=== PATIENT | male | born 1955 | race Caucasian/White ===

== ENCOUNTER 2020-02-11 19:30 | Inpatient (IN) ==
[2020-02-11] MEDS ORDERED: *HR* Dextrose 50 % in Water (Syg) 50 ML SYRINGE ONE ×3 (19:54→22:29)
[2020-02-11] MEDS ORDERED: *HR* Dextrose 50 % in Water (Syg) 50 ML SYRINGE IVP ONE ×2 (19:57→20:36)
[2020-02-11 20:05] LABS: Basophils % 0.3 %; Hemoglobin 9.8 g/dL (12.9-16.9); Segmented Neutrophils % 39.6 %
[2020-02-11 20:07] LABS: Eosinophils # 0.1 K/mcL (0.0-0.6); Eosinophils % 1.6 %; Hematocrit 33.5 % (37.5-50.1); Immature Granulocytes % 0.3 % (0-4); Immature Platelets 4.4 % (1.1-6.1); Lymphocytes # 1.6 K/mcL (0.6-4.6); Mean Corpuscular HGB Conc 29.3 g/dL (31.6-35.5); Mean Corpuscular Hemoglobin 25.5 pg (28.0-33.3); Mean Platelet Volume 9.8 fL (9.4-12.4); Monocytes # 0.3 K/mcL (0.0-1.3); Monocytes % 8.2 %; Neutrophils # 1.3 K/mcL (1.6-8.9); Red Blood Count 3.85 M/mcL (4.19-5.50); Red Cell Distribution Width 17.7 % (11.5-14.5); White Blood Count 3.2 K/mcL (4.3-11.1)
[2020-02-11 20:13] LABS: Prothrombin Time 11.5 Seconds (9.4-12.1)
[2020-02-11 20:14] LABS: Estimated Average Glucose 246 mg/dl
[2020-02-11 20:27] LABS: Platelet Count 62 K/mcL (140-400)
[2020-02-11 20:28] LABS: Platelet Estimate Decreased (Normal)
[2020-02-11 20:30] LABS: VBG HCO3 22 mEq/L (21-27); VBG PCO2 50 mmHg (41-51); VBG PH 7.25 pH Units (7.32-7.42); VBG PO2 69 mmHg (25-50)
[2020-02-11 20:31] LABS: Hypochromasia Present (Not Present); Microcytosis Present (Not Present)
[2020-02-11 20:32] LABS: Alanine Aminotransferase 35 Units/L (7-52); Albumin 3.6 g/dL (3.5-5.7); Albumin/Globulin Ratio 1.1 (1.1-2.2); Alkaline Phosphatase 201 Units/L (34-104); Aspartate Amino Transferase 30 Units/L (13-39); BUN/Creatinine Ratio 29 (6-26); Bilirubin,Direct 0.1 mg/dL (0.0-0.2); Bilirubin,Indirect 0.4 mg/dL (0.0-1.0); Bilirubin,Total 0.5 mg/dL (0.3-1.0); Blood Urea Nitrogen 47 mg/dL (8-23); Calcium 11.6 mg/dL (8.6-10.3); Carbon Dioxide 18 mEq/L (23-29); Chloride 108 mEq/L (98-107); Globulin 3.3 g/dL (2.4-3.5); Glucose 65 mg/dL (70-105); Magnesium 1.6 mg/dL (1.6-2.6); Osmolality,Calculated 294 (280-300); Phosphorous 3.4 mg/dL (2.7-4.5); Potassium 5.9 mEq/L (3.5-5.1); Sodium 137 mEq/L (136-145); Total Protein 6.9 g/dL (6.4-8.9); eGFR For African Americans 53 (> 60); eGFR For Non-African Americans 44 (> 60)
[2020-02-11 20:33] LABS: Troponin I < 0.03 ng/mL (< 0.04)
[2020-02-11] MEDS ORDERED: Calcium Gluconate 1gm/50mL 1 GM/50 ML BAG IVPB ONE (20:36)
[2020-02-11] MEDS ORDERED: Insulin Human Regular 5 UNIT in 0.9 % Sodium Chloride 10 ML IV ONE (20:37)
[2020-02-11] MEDS ORDERED: Ipratropium/Albuterol Neb 3 ML IH ONE (20:37)
[2020-02-11 20:38] LABS: C-Reactive Protein 29 mg/L (Less than 10)
[2020-02-11 21:14] LABS: Bacteria,Urine None Seen per hpf (None-Few); Bilirubin,Urine Negative (Negative); Blood,Urine Negative (Negative); Clarity,Urine Clear (Clear); Color,Urine Yellow (Yellow); Glucose,Urine (UA) Normal (Normal); Hyaline Casts,Urine None Seen per lpf (None-Few); Ketones,Urine Negative (Negative); Leukocyte Esterase,Urine Trace (Negative); Nitrite,Urine Negative (Negative); PH,Urine 5.5 pH Units (5.0-8.0); Protein,Urine Negative (Neg-Trace); RBC,Urine 0-3 per hpf (0-3); Specific Gravity,Urine 1.017 (1.010-1.025); Squamous Epithelial Cell,Urine Few per lpf (None-Few); Urobilinogen,Urine Normal (Normal); WBC,Urine 0-3 per hpf (0-3)
[2020-02-11] MEDS: 0.9 % Sodium Chloride 1,000 ML IVC SCH (21:26)
[2020-02-11] MEDS ORDERED: Piperacillin/Tazobactam 3.375 GM in 0.9 % Sodium Chloride Mini Bag 100 ML IVPB ONE (21:33)
[2020-02-11] MEDS ORDERED: Ondansetron 4 MG/2 ML VIAL IVP PRN (21:54)
[2020-02-11] MEDS ORDERED: Naloxone 0.4 MG/ML INJ IVP PRN (21:54)
[2020-02-11] MEDS ORDERED: Dextrose Gel 15 GM/37.5 ML TUBE PO PRN ×2 (21:56)
[2020-02-11] MEDS ORDERED: D5% in Water 1,000 ML IVC PRN (21:56)
[2020-02-11] MEDS ORDERED: Ringers Solution, Lactated 1,000 ML IVC SCH (22:00)
[2020-02-11] MEDS: *HR* Dextrose 50 % in Water (Syg) 50 ML SYRINGE IVP PRN ×2 (22:33→23:36)
[2020-02-11] MEDS ORDERED: Vancomycin 1,750 MG in 0.9 % Sodium Chloride 250 ML IVPB SCH (23:45)
[2020-02-12] MEDS: *HR* Dextrose 50 % in Water (Syg) 50 ML SYRINGE IVP PRN ×3 (00:21→06:06)
[2020-02-12] MEDS: 0.9 % Sodium Chloride 1,000 ML IVC SCH (00:23)
[2020-02-12 02:06] LABS: Basophils % 0.4 %; Hemoglobin 9.2 g/dL (12.9-16.9); Immature Granulocytes % 0.4 % (0-4); Mean Corpuscular Hemoglobin 25.1 pg (28.0-33.3)
[2020-02-12 02:08] LABS: Eosinophils % 1.4 %; Hematocrit 31.6 % (37.5-50.1); Immature Platelets 4.2 % (1.1-6.1); Lymphocytes # 1.3 K/mcL (0.6-4.6); Lymphocytes % 47.9 %; Mean Corpuscular HGB Conc 29.1 g/dL (31.6-35.5); Mean Corpuscular Volume 86.3 fL (83.0-100.0); Mean Platelet Volume 9.5 fL (9.4-12.4); Monocytes # 0.3 K/mcL (0.0-1.3); Monocytes % 9.3 %; Neutrophils # 1.1 K/mcL (1.6-8.9); Red Blood Count 3.66 M/mcL (4.19-5.50); Red Cell Distribution Width 17.9 % (11.5-14.5); Segmented Neutrophils % 40.6 %; White Blood Count 2.8 K/mcL (4.3-11.1)
[2020-02-12 02:10] LABS: Platelet Count 55 K/mcL (140-400)
[2020-02-12 02:12] LABS: Prothrombin Time 11.7 Seconds (9.4-12.1)
[2020-02-12 02:27] LABS: Albumin 3.3 g/dL (3.5-5.7); Albumin/Globulin Ratio 1.1 (1.1-2.2); Bilirubin,Total 0.5 mg/dL (0.3-1.0); Calcium 10.9 mg/dL (8.6-10.3); Globulin 3.1 g/dL (2.4-3.5); Magnesium 1.5 mg/dL (1.6-2.6); Phosphorous 3.1 mg/dL (2.7-4.5); Potassium 5.7 mEq/L (3.5-5.1); Total Protein 6.4 g/dL (6.4-8.9)
[2020-02-12] MEDS ORDERED: D5% in 0.45% NACL 1,000 ML IVC SCH (02:45)
[2020-02-12 04:49] LABS: % Iron Saturation 90 % (20-55); Iron 224 mcg/dL (65-175); Transferrin 177 mg/dL (203-362)
[2020-02-12 05:07] LABS: Ferritin 169 ng/mL (20-250)
[2020-02-12] MEDS: *HR* Heparin 5,000 UNIT/ML VIAL SQ SCH ×4 (05:41→20:50)
[2020-02-12] MEDS: Aspirin Enteric Coated 81 MG Tablet PO SCH (10:17)
[2020-02-12] MEDS: Piperacillin/Tazobactam 3.375 GM in 0.9 % Sodium Chloride Mini Bag 100 ML IVPB SCH ×2 (10:18→17:39)
[2020-02-12] MEDS ORDERED: Vancomycin 2,000 MG/520 ML IV.SOLN IVPB ONE (13:00)
[2020-02-12 13:39] LABS: Sodium, Urine 140.9 mEq/L
[2020-02-12] MEDS ORDERED: SODIUM ZIRCONIUM CYCLOSILICATE 5 GM POWD.PACK PO SCH (15:00)
[2020-02-12 16:23] LABS: Potassium 6.5 mEq/L (3.5-5.1)
[2020-02-12] MEDS ORDERED: Calcium Gluconate 1gm/50mL 1 GM/50 ML BAG IVPB ONE (16:51)
[2020-02-12] MEDS ORDERED: Ipratropium/Albuterol Neb 3 ML IH ONE (16:52)
[2020-02-12] MEDS: D5% in 0.45% NACL 1,000 ML IVC SCH (17:40)
[2020-02-12] MEDS ORDERED: Vancomycin 1,500 MG/265 ML IV.SOLN IVPB SCH (20:00)
[2020-02-12] MEDS: Dorzolamide/Timolol OPTH 10 ML BOTTLE BOTH EYES SCH (20:48)
[2020-02-12] MEDS: Famotidine 20 MG TABLET PO SCH (20:49)
[2020-02-12] MEDS: Mycophenolate Sodium (DR) 180 MG TABLET.DR PO SCH (20:49)
[2020-02-12] MEDS: carvediloL 6.25 MG TABLET PO SCH (20:49)
[2020-02-12] MEDS: CycloSPORINE, Mod (Neoral) 25 MG CAPSULE PO SCH (20:50)
[2020-02-13] MEDS: SODIUM ZIRCONIUM CYCLOSILICATE 5 GM POWD.PACK PO SCH ×3 (00:01→16:10)
[2020-02-13] MEDS: Piperacillin/Tazobactam 3.375 GM in 0.9 % Sodium Chloride Mini Bag 100 ML IVPB SCH ×3 (00:02→17:26)
[2020-02-13] MEDS: D5% in 0.45% NACL 1,000 ML IVC SCH (04:12)
[2020-02-13] MEDS: *HR* Heparin 5,000 UNIT/ML VIAL SQ SCH ×3 (05:11→21:29)
[2020-02-13 06:57] LABS: Basophils % 0.3 %; Eosinophils # 0.1 K/mcL (0.0-0.6); Eosinophils % 1.7 %; Hematocrit 31.3 % (37.5-50.1); Hemoglobin 9.5 g/dL (12.9-16.9); Immature Granulocytes % 0.3 % (0-4); Immature Platelets 5.9 % (1.1-6.1); Lymphocytes # 1.8 K/mcL (0.6-4.6); Lymphocytes % 52.6 %; Mean Corpuscular HGB Conc 30.4 g/dL (31.6-35.5); Mean Corpuscular Hemoglobin 25.7 pg (28.0-33.3); Mean Corpuscular Volume 84.6 fL (83.0-100.0); Monocytes # 0.4 K/mcL (0.0-1.3); Monocytes % 12.7 %; Neutrophils # 1.1 K/mcL (1.6-8.9); Red Cell Distribution Width 17.6 % (11.5-14.5); Segmented Neutrophils % 32.4 %; White Blood Count 3.5 K/mcL (4.3-11.1)
[2020-02-13 06:58] LABS: Platelet Count 41 K/mcL (140-400)
[2020-02-13 07:09] LABS: BUN/Creatinine Ratio 28 (6-26); Blood Urea Nitrogen 39 mg/dL (8-23); Calcium 10.7 mg/dL (8.6-10.3); Carbon Dioxide 17 mEq/L (23-29); Chloride 113 mEq/L (98-107); Glucose 118 mg/dL (70-105); Osmolality,Calculated 288 (280-300); Potassium 6.7 mEq/L (3.5-5.1); Sodium 134 mEq/L (136-145); eGFR For African Americans > 60 (> 60); eGFR For Non-African Americans 51 (> 60)
[2020-02-13] MEDS ORDERED: Calcium Gluconate 1gm/50mL 1 GM/50 ML BAG IVPB ONE (07:30)
[2020-02-13] MEDS: carvediloL 6.25 MG TABLET PO SCH ×2 (08:16→21:26)
[2020-02-13] MEDS: polyethylene glycoL 3350 17 GM POWD.PACK PO SCH (08:16)
[2020-02-13] MEDS: Aspirin Enteric Coated 81 MG Tablet PO SCH (08:16)
[2020-02-13] MEDS: Famotidine 20 MG TABLET PO SCH ×2 (08:17→21:23)
[2020-02-13] MEDS: CycloSPORINE, Mod (Neoral) 25 MG CAPSULE PO SCH ×2 (08:19→21:22)
[2020-02-13] MEDS: Mycophenolate Sodium (DR) 180 MG TABLET.DR PO SCH ×2 (08:19→21:26)
[2020-02-13] MEDS: Dorzolamide/Timolol OPTH 10 ML BOTTLE BOTH EYES SCH ×2 (08:31→21:36)
[2020-02-13] MEDS ORDERED: Aminoglycoside Consult 1 EACH MC ONE (08:42)
[2020-02-13] MEDS ORDERED: Collagenase Oint 1 APPL GRAM TP SCH (09:00)
[2020-02-13] MEDS ORDERED: NON-FORMULARY MEDICATION 1 EACH EACH (Ezetimibe [Zetia] 10 MG) PO SCH (09:00)
[2020-02-13] MEDS ORDERED: Bisacodyl 10 MG RECTAL SUPPOSITORY RC PRN (09:17)
[2020-02-13] MEDS ORDERED: Insulin Human Regular 10 UNIT in 0.9 % Sodium Chloride 10 ML IV ONE (10:54)
[2020-02-13] MEDS ORDERED: *HR* Dextrose 50 % in Water (Syg) 50 ML SYRINGE IVP ONE (10:54)
[2020-02-13] MEDS: Sodium Bicarbonate 75 MEQ in D5% in 0.45% NACL 1,000 ML IVC SCH ×2 (11:34→22:39)
[2020-02-13] MEDS ORDERED: Vancomycin 1,750 MG/517.5 ML IV.SOLN IVPB SCH (13:00)
[2020-02-13] MEDS ORDERED: DAPTOmycin 800 MG in 0.9 % Sodium Chloride 100 ML IVPB SCH (16:30)
[2020-02-14] MEDS: Piperacillin/Tazobactam 3.375 GM in 0.9 % Sodium Chloride Mini Bag 100 ML IVPB SCH ×3 (00:19→15:37)
[2020-02-14] MEDS: SODIUM ZIRCONIUM CYCLOSILICATE 5 GM POWD.PACK PO SCH ×2 (00:24→10:51)
[2020-02-14 02:34] LABS: Basophils % 0.4 %
[2020-02-14 02:35] LABS: Eosinophils # 0.1 K/mcL (0.0-0.6); Eosinophils % 2.7 %; Hematocrit 29.2 % (37.5-50.1); Hemoglobin 8.6 g/dL (12.9-16.9); Immature Platelets 5.1 % (1.1-6.1); Lymphocytes # 1.3 K/mcL (0.6-4.6); Lymphocytes % 49.6 %; Mean Corpuscular HGB Conc 29.5 g/dL (31.6-35.5); Mean Corpuscular Hemoglobin 25.4 pg (28.0-33.3); Mean Corpuscular Volume 86.4 fL (83.0-100.0); Mean Platelet Volume 10.5 fL (9.4-12.4); Monocytes # 0.3 K/mcL (0.0-1.3); Monocytes % 11.4 %; Red Blood Count 3.38 M/mcL (4.19-5.50); Red Cell Distribution Width 17.9 % (11.5-14.5); Segmented Neutrophils % 35.9 %; White Blood Count 2.6 K/mcL (4.3-11.1)
[2020-02-14 02:36] LABS: INR 1.1; Neutrophils # 0.9 K/mcL (1.6-8.9); Platelet Count 39 K/mcL (140-400); Prothrombin Time 12.1 Seconds (9.4-12.1)
[2020-02-14 02:56] LABS: BUN/Creatinine Ratio 27 (6-26); Blood Urea Nitrogen 35 mg/dL (8-23); Calcium 10.4 mg/dL (8.6-10.3); Carbon Dioxide 21 mEq/L (23-29); Chloride 108 mEq/L (98-107); Glucose 144 mg/dL (70-105); Osmolality,Calculated 291 (280-300); Potassium 5.2 mEq/L (3.5-5.1); Sodium 135 mEq/L (136-145); eGFR For African Americans > 60 (> 60); eGFR For Non-African Americans 56 (> 60)
[2020-02-14] MEDS: *HR* Heparin 5,000 UNIT/ML VIAL SQ SCH (06:43)
[2020-02-14] MEDS ORDERED: SODIUM ZIRCONIUM CYCLOSILICATE 5 GM POWD.PACK PO SCH (09:00)
[2020-02-14] MEDS: Sodium Bicarbonate 75 MEQ in D5% in 0.45% NACL 1,000 ML IVC SCH ×2 (10:32→21:09)
[2020-02-14] MEDS: Famotidine 20 MG TABLET PO SCH ×2 (10:38→20:13)
[2020-02-14] MEDS: polyethylene glycoL 3350 17 GM POWD.PACK PO SCH (10:38)
[2020-02-14] MEDS: Aspirin Enteric Coated 81 MG Tablet PO SCH (10:39)
[2020-02-14] MEDS: CycloSPORINE, Mod (Neoral) 25 MG CAPSULE PO SCH ×2 (10:39→20:13)
[2020-02-14] MEDS: Mycophenolate Sodium (DR) 180 MG TABLET.DR PO SCH ×2 (10:39→20:13)
[2020-02-14] MEDS: carvediloL 6.25 MG TABLET PO SCH ×2 (10:39→20:13)
[2020-02-14] MEDS: Dorzolamide/Timolol OPTH 10 ML BOTTLE BOTH EYES SCH ×2 (10:40→20:13)
[2020-02-14] MEDS ORDERED: Isovue-370 500 ML BOTTLE IVP ONE (11:21)
[2020-02-14] MEDS ORDERED: DAPTOmycin 800 MG in 0.9 % Sodium Chloride 100 ML IVPB SCH ×2 (17:00→19:00)
[2020-02-14] MEDS: Insulin LISPRO 300 UNITS/3 ML VIAL SQ SCH ×2 (18:35→20:12)
[2020-02-15] MEDS: Piperacillin/Tazobactam 3.375 GM in 0.9 % Sodium Chloride Mini Bag 100 ML IVPB SCH ×3 (00:13→16:14)
[2020-02-15 01:52] LABS: Hematocrit 26.5 % (37.5-50.1); Immature Platelets 7.8 % (1.1-6.1); Mean Corpuscular HGB Conc 30.2 g/dL (31.6-35.5); Mean Corpuscular Hemoglobin 25.3 pg (28.0-33.3); Mean Corpuscular Volume 83.9 fL (83.0-100.0); Mean Platelet Volume 11.5 fL (9.4-12.4); Red Blood Count 3.16 M/mcL (4.19-5.50); Red Cell Distribution Width 17.4 % (11.5-14.5); White Blood Count 3.4 K/mcL (4.3-11.1)
[2020-02-15 01:53] LABS: BUN/Creatinine Ratio 22 (6-26); Blood Urea Nitrogen 30 mg/dL (8-23); Calcium 10.3 mg/dL (8.6-10.3); Carbon Dioxide 21 mEq/L (23-29); Chloride 109 mEq/L (98-107); Glucose 120 mg/dL (70-105); Osmolality,Calculated 283 (280-300); Potassium 5.7 mEq/L (3.5-5.1); Sodium 133 mEq/L (136-145); eGFR For African Americans > 60 (> 60); eGFR For Non-African Americans 53 (> 60)
[2020-02-15] MEDS: Sodium Bicarbonate 75 MEQ in D5% in 0.45% NACL 1,000 ML IVC SCH ×2 (06:20→16:13)
[2020-02-15] MEDS: Aspirin Enteric Coated 81 MG Tablet PO SCH (09:18)
[2020-02-15] MEDS: Famotidine 20 MG TABLET PO SCH ×2 (09:18→21:08)
[2020-02-15] MEDS: carvediloL 6.25 MG TABLET PO SCH ×2 (09:19→21:08)
[2020-02-15] MEDS: Mycophenolate Sodium (DR) 180 MG TABLET.DR PO SCH ×2 (09:19→21:07)
[2020-02-15] MEDS: CycloSPORINE, Mod (Neoral) 25 MG CAPSULE PO SCH ×2 (09:19→21:08)
[2020-02-15] MEDS: Insulin LISPRO 300 UNITS/3 ML VIAL SQ SCH ×4 (09:20→21:03)
[2020-02-15] MEDS: Dorzolamide/Timolol OPTH 10 ML BOTTLE BOTH EYES SCH ×2 (09:20→21:08)
[2020-02-15] MEDS: polyethylene glycoL 3350 17 GM POWD.PACK PO SCH (09:20)
[2020-02-15] MEDS: SODIUM ZIRCONIUM CYCLOSILICATE 5 GM POWD.PACK PO SCH (09:20)
[2020-02-15] MEDS ORDERED: 0.9 % Sodium Chloride 250 ML ONE (11:31)
[2020-02-16] MEDS: Piperacillin/Tazobactam 3.375 GM in 0.9 % Sodium Chloride Mini Bag 100 ML IVPB SCH ×4 (00:34→23:16)
[2020-02-16 02:51] LABS: Hematocrit 25.8 % (37.5-50.1); Hemoglobin 7.6 g/dL (12.9-16.9); Mean Corpuscular HGB Conc 29.5 g/dL (31.6-35.5); Mean Corpuscular Hemoglobin 25.4 pg (28.0-33.3); Mean Corpuscular Volume 86.3 fL (83.0-100.0); Mean Platelet Volume 11.7 fL (9.4-12.4); Red Blood Count 2.99 M/mcL (4.19-5.50); Red Cell Distribution Width 17.3 % (11.5-14.5)
[2020-02-16 02:52] LABS: Platelet Count 41 K/mcL (140-400)
[2020-02-16 02:56] LABS: BUN/Creatinine Ratio 20 (6-26); Blood Urea Nitrogen 27 mg/dL (8-23); Calcium 10.2 mg/dL (8.6-10.3); Carbon Dioxide 21 mEq/L (23-29); Chloride 108 mEq/L (98-107); Glucose 142 mg/dL (70-105); Osmolality,Calculated 286 (280-300); Potassium 6.3 mEq/L (3.5-5.1); Sodium 134 mEq/L (136-145); eGFR For African Americans > 60 (> 60); eGFR For Non-African Americans 53 (> 60)
[2020-02-16] MEDS: Sodium Bicarbonate 75 MEQ in D5% in 0.45% NACL 1,000 ML IVC SCH ×3 (04:00→23:17)
[2020-02-16] MEDS ORDERED: Calcium Gluconate 1gm/50mL 1 GM/50 ML BAG IVPB ONE ×2 (09:05→13:02)
[2020-02-16] MEDS: Dorzolamide/Timolol OPTH 10 ML BOTTLE BOTH EYES SCH ×2 (09:42→19:56)
[2020-02-16] MEDS: polyethylene glycoL 3350 17 GM POWD.PACK PO SCH (09:42)
[2020-02-16] MEDS: Insulin LISPRO 300 UNITS/3 ML VIAL SQ SCH ×4 (09:44→20:09)
[2020-02-16] MEDS: SODIUM ZIRCONIUM CYCLOSILICATE 5 GM POWD.PACK PO SCH (09:44)
[2020-02-16] MEDS: Mycophenolate Sodium (DR) 180 MG TABLET.DR PO SCH ×2 (09:44→19:59)
[2020-02-16] MEDS: Famotidine 20 MG TABLET PO SCH ×2 (09:45→19:59)
[2020-02-16] MEDS: carvediloL 6.25 MG TABLET PO SCH ×2 (09:45→19:52)
[2020-02-16] MEDS: CycloSPORINE, Mod (Neoral) 25 MG CAPSULE PO SCH ×2 (09:45→19:59)
[2020-02-16] MEDS: Aspirin Enteric Coated 81 MG Tablet PO SCH (09:45)
[2020-02-16] MEDS ORDERED: Furosemide 20 MG TABLET PO ONE (11:46)
[2020-02-16 13:55] LABS: Calcium 10.5 mg/dL (8.6-10.3); Potassium 4.8 mEq/L (3.5-5.1)
[2020-02-17 02:06] LABS: Eosinophils % 1.9 %; Red Cell Distribution Width 17.3 % (11.5-14.5)
[2020-02-17 02:08] LABS: Basophils % 0.5 %; Eosinophils # 0.1 K/mcL (0.0-0.6); Hematocrit 27.8 % (37.5-50.1); Hemoglobin 8.4 g/dL (12.9-16.9); Immature Granulocytes % 0.8 % (0-4); Immature Platelets 8.9 % (1.1-6.1); Lymphocytes # 1.9 K/mcL (0.6-4.6); Lymphocytes % 51.8 %; Mean Corpuscular HGB Conc 30.2 g/dL (31.6-35.5); Mean Corpuscular Hemoglobin 25.4 pg (28.0-33.3); Monocytes # 0.8 K/mcL (0.0-1.3); Monocytes % 22.4 %; Neutrophils # 0.8 K/mcL (1.6-8.9); Red Blood Count 3.31 M/mcL (4.19-5.50); Segmented Neutrophils % 22.6 %; White Blood Count 3.7 K/mcL (4.3-11.1)
[2020-02-17 02:11] LABS: Platelet Count 46 K/mcL (140-400)
[2020-02-17 02:17] LABS: % Iron Saturation 37 % (20-55); BUN/Creatinine Ratio 17 (6-26); Blood Urea Nitrogen 23 mg/dL (8-23); Calcium 10.5 mg/dL (8.6-10.3); Carbon Dioxide 23 mEq/L (23-29); Chloride 109 mEq/L (98-107); Glucose 150 mg/dL (70-105); Iron 92 mcg/dL (65-175); Osmolality,Calculated 293 (280-300); Potassium 5.3 mEq/L (3.5-5.1); Sodium 138 mEq/L (136-145); Transferrin 179 mg/dL (203-362); eGFR For African Americans > 60 (> 60); eGFR For Non-African Americans 53 (> 60)
[2020-02-17 03:03] LABS: Magnesium 1.3 mg/dL (1.6-2.6)
[2020-02-17 03:46] LABS: Platelet Estimate Decreased (Normal); Reactive Lymphocytes Present (Not Present)
[2020-02-17] MEDS ORDERED: *HR* Atropine Sulfate 1 MG/10 ML SYRINGE IVP ONE ×2 (09:45→15:56)
[2020-02-17] MEDS: Mycophenolate Sodium (DR) 180 MG TABLET.DR PO SCH ×2 (10:15→19:59)
[2020-02-17] MEDS: Piperacillin/Tazobactam 3.375 GM in 0.9 % Sodium Chloride Mini Bag 100 ML IVPB SCH ×3 (10:15→23:14)
[2020-02-17] MEDS: CycloSPORINE, Mod (Neoral) 25 MG CAPSULE PO SCH ×2 (10:15→19:59)
[2020-02-17] MEDS: Aspirin Enteric Coated 81 MG Tablet PO SCH (10:15)
[2020-02-17] MEDS: Famotidine 20 MG TABLET PO SCH ×2 (10:16→19:59)
[2020-02-17] MEDS: SODIUM ZIRCONIUM CYCLOSILICATE 5 GM POWD.PACK PO SCH (10:16)
[2020-02-17] MEDS: carvediloL 6.25 MG TABLET PO SCH ×2 (10:17→22:54)
[2020-02-17] MEDS: Insulin LISPRO 300 UNITS/3 ML VIAL SQ SCH ×4 (10:17→22:54)
[2020-02-17] MEDS: Dorzolamide/Timolol OPTH 10 ML BOTTLE BOTH EYES SCH ×2 (10:24→19:59)
[2020-02-17] MEDS: polyethylene glycoL 3350 17 GM POWD.PACK PO SCH (10:25)
[2020-02-17] MEDS ORDERED: *HR* Atropine Sulfate 1 MG/10 ML SYRINGE ONE (15:56)
[2020-02-18] MEDS: Sodium Bicarbonate 75 MEQ in D5% in 0.45% NACL 1,000 ML IVC SCH ×3 (03:05→17:28)
[2020-02-18 06:18] LABS: Basophils % 0.8 %; Eosinophils # 0.1 K/mcL (0.0-0.6); Hematocrit 26.5 % (37.5-50.1); Immature Granulocytes % 2.7 % (0-4); Immature Platelets 10.5 % (1.1-6.1); Lymphocytes # 1.3 K/mcL (0.6-4.6); Lymphocytes % 50.4 %; Mean Corpuscular HGB Conc 30.2 g/dL (31.6-35.5); Mean Corpuscular Hemoglobin 25.5 pg (28.0-33.3); Mean Corpuscular Volume 84.4 fL (83.0-100.0); Monocytes # 0.4 K/mcL (0.0-1.3); Monocytes % 16.7 %; Neutrophils # 0.7 K/mcL (1.6-8.9); Red Blood Count 3.14 M/mcL (4.19-5.50); Red Cell Distribution Width 17.2 % (11.5-14.5); Segmented Neutrophils % 26.4 %; White Blood Count 2.6 K/mcL (4.3-11.1)
[2020-02-18 06:20] LABS: Platelet Count 54 K/mcL (140-400)
[2020-02-18 06:29] LABS: Calcium 10.3 mg/dL (8.6-10.3); Magnesium 1.5 mg/dL (1.6-2.6); Phosphorous 3.1 mg/dL (2.7-4.5); Potassium 4.4 mEq/L (3.5-5.1)
[2020-02-18 07:06] LABS: Platelet Estimate Decreased (Normal)
[2020-02-18] MEDS: CycloSPORINE, Mod (Neoral) 25 MG CAPSULE PO SCH ×2 (08:40→21:12)
[2020-02-18] MEDS: Aspirin Enteric Coated 81 MG Tablet PO SCH (08:41)
[2020-02-18] MEDS: polyethylene glycoL 3350 17 GM POWD.PACK PO SCH (08:41)
[2020-02-18] MEDS: Mycophenolate Sodium (DR) 180 MG TABLET.DR PO SCH ×2 (08:41→21:11)
[2020-02-18] MEDS: Famotidine 20 MG TABLET PO SCH ×2 (08:41→21:12)
[2020-02-18] MEDS: Piperacillin/Tazobactam 3.375 GM in 0.9 % Sodium Chloride Mini Bag 100 ML IVPB SCH ×2 (08:42→17:27)
[2020-02-18] MEDS: SODIUM ZIRCONIUM CYCLOSILICATE 5 GM POWD.PACK PO SCH (08:43)
[2020-02-18] MEDS: Insulin LISPRO 300 UNITS/3 ML VIAL SQ SCH ×4 (08:50→21:13)
[2020-02-18] MEDS: Dorzolamide/Timolol OPTH 10 ML BOTTLE BOTH EYES SCH ×2 (08:50→21:14)
[2020-02-18] MEDS ORDERED: *HR* Atropine Sulfate 1 MG/10 ML SYRINGE ONE (09:37)
[2020-02-18] MEDS ORDERED: *HR* Atropine Sulfate 1 MG/10 ML SYRINGE IVP ONE (09:53)
[2020-02-19] MEDS: Piperacillin/Tazobactam 3.375 GM in 0.9 % Sodium Chloride Mini Bag 100 ML IVPB SCH ×3 (00:09→16:25)
[2020-02-19 01:59] LABS: Basophils % 0.8 %; Monocytes # 0.5 K/mcL (0.0-1.3); Monocytes % 15.3 %; Red Blood Count 3.08 M/mcL (4.19-5.50); White Blood Count 3.5 K/mcL (4.3-11.1)
[2020-02-19 02:01] LABS: Eosinophils # 0.1 K/mcL (0.0-0.6); Eosinophils % 2.3 %; Hematocrit 26.2 % (37.5-50.1); Hemoglobin 7.9 g/dL (12.9-16.9); Immature Granulocytes % 2.5 % (0-4); Immature Platelets 10.2 % (1.1-6.1); Lymphocytes # 1.5 K/mcL (0.6-4.6); Lymphocytes % 41.6 %; Mean Corpuscular HGB Conc 30.2 g/dL (31.6-35.5); Mean Corpuscular Hemoglobin 25.6 pg (28.0-33.3); Mean Corpuscular Volume 85.1 fL (83.0-100.0); Neutrophils # 1.3 K/mcL (1.6-8.9); Nucleated Red Blood Cells 0.8 /100 WBC (0); Red Cell Distribution Width 17.4 % (11.5-14.5); Segmented Neutrophils % 37.5 %
[2020-02-19 02:11] LABS: Calcium 10.2 mg/dL (8.6-10.3); Magnesium 1.4 mg/dL (1.6-2.6); Phosphorous 2.7 mg/dL (2.7-4.5); Potassium 4.6 mEq/L (3.5-5.1)
[2020-02-19 02:23] LABS: Platelet Count 71 K/mcL (140-400)
[2020-02-19] MEDS: Sodium Bicarbonate 75 MEQ in D5% in 0.45% NACL 1,000 ML IVC SCH ×3 (03:15→19:43)
[2020-02-19] MEDS: Mycophenolate Sodium (DR) 180 MG TABLET.DR PO SCH ×2 (07:35→19:55)
[2020-02-19] MEDS: CycloSPORINE, Mod (Neoral) 25 MG CAPSULE PO SCH ×2 (07:35→19:54)
[2020-02-19] MEDS: polyethylene glycoL 3350 17 GM POWD.PACK PO SCH (07:36)
[2020-02-19] MEDS: Aspirin Enteric Coated 81 MG Tablet PO SCH (07:36)
[2020-02-19] MEDS: SODIUM ZIRCONIUM CYCLOSILICATE 5 GM POWD.PACK PO SCH (07:36)
[2020-02-19] MEDS: Famotidine 20 MG TABLET PO SCH ×2 (07:36→19:55)
[2020-02-19] MEDS: Dorzolamide/Timolol OPTH 10 ML BOTTLE BOTH EYES SCH ×2 (07:46→19:55)
[2020-02-19] MEDS: Insulin LISPRO 300 UNITS/3 ML VIAL SQ SCH ×4 (08:06→19:56)
[2020-02-20] MEDS: Sodium Bicarbonate 75 MEQ in D5% in 0.45% NACL 1,000 ML IVC SCH ×3 (01:34→23:07)
[2020-02-20 08:08] LABS: Basophils % 0.4 %; Eosinophils # 0.1 K/mcL (0.0-0.6); Eosinophils % 1.5 %; Hematocrit 25.7 % (37.5-50.1); Hemoglobin 7.7 g/dL (12.9-16.9); Immature Granulocytes % 3.3 % (0-4); Lymphocytes # 2.2 K/mcL (0.6-4.6); Lymphocytes % 43.3 %; Mean Corpuscular Hemoglobin 25.7 pg (28.0-33.3); Mean Corpuscular Volume 85.7 fL (83.0-100.0); Mean Platelet Volume 11.1 fL (9.4-12.4); Monocytes # 0.7 K/mcL (0.0-1.3); Nucleated Red Blood Cells 3.3 /100 WBC (0); Platelet Count 106 K/mcL (140-400); Red Cell Distribution Width 17.7 % (11.5-14.5); Segmented Neutrophils % 38.5 %; White Blood Count 5.2 K/mcL (4.3-11.1)
[2020-02-20 08:24] LABS: Calcium 10.4 mg/dL (8.6-10.3); Potassium 4.1 mEq/L (3.5-5.1)
[2020-02-20] MEDS: polyethylene glycoL 3350 17 GM POWD.PACK PO SCH (09:25)
[2020-02-20] MEDS: SODIUM ZIRCONIUM CYCLOSILICATE 5 GM POWD.PACK PO SCH (09:25)
[2020-02-20] MEDS: Aspirin Enteric Coated 81 MG Tablet PO SCH (09:26)
[2020-02-20] MEDS: Famotidine 20 MG TABLET PO SCH ×2 (09:26→21:19)
[2020-02-20] MEDS: CycloSPORINE, Mod (Neoral) 25 MG CAPSULE PO SCH ×2 (09:26→21:19)
[2020-02-20] MEDS: Mycophenolate Sodium (DR) 180 MG TABLET.DR PO SCH ×2 (09:26→21:19)
[2020-02-20] MEDS: Piperacillin/Tazobactam 3.375 GM in 0.9 % Sodium Chloride Mini Bag 100 ML IVPB SCH ×4 (09:27→23:07)
[2020-02-20] MEDS: Dorzolamide/Timolol OPTH 10 ML BOTTLE BOTH EYES SCH ×2 (09:27→21:19)
[2020-02-20] MEDS: Insulin LISPRO 300 UNITS/3 ML VIAL SQ SCH ×4 (09:28→21:24)
[2020-02-21 03:08] LABS: Hemoglobin 7.4 g/dL (12.9-16.9); Monocytes % 12.1 %
[2020-02-21 03:10] LABS: Basophils % 0.6 %; Eosinophils # 0.1 K/mcL (0.0-0.6); Eosinophils % 1.6 %; Hematocrit 25.7 % (37.5-50.1); Immature Granulocytes % 4.4 % (0-4); Immature Platelets 6.9 % (1.1-6.1); Lymphocytes # 2.1 K/mcL (0.6-4.6); Lymphocytes % 41.6 %; Mean Corpuscular HGB Conc 28.8 g/dL (31.6-35.5); Mean Corpuscular Hemoglobin 24.7 pg (28.0-33.3); Mean Platelet Volume 11.6 fL (9.4-12.4); Monocytes # 0.6 K/mcL (0.0-1.3); Nucleated Red Blood Cells 3.2 /100 WBC (0); Platelet Count 122 K/mcL (140-400); Red Blood Count 2.99 M/mcL (4.19-5.50); Red Cell Distribution Width 17.6 % (11.5-14.5); Segmented Neutrophils % 39.7 %
[2020-02-21 03:14] LABS: INR 1.1; Prothrombin Time 12.6 Seconds (9.4-12.1)
[2020-02-21 03:16] LABS: Activated Partial Thrombo Time 41.1 Seconds (26.0-36.0)
[2020-02-21 03:34] LABS: Calcium 10.4 mg/dL (8.6-10.3); Potassium 4.5 mEq/L (3.5-5.1)
[2020-02-21 04:06] LABS: Hypochromasia Present (Not Present); Platelet Estimate Normal (Normal)
[2020-02-21] MEDS: Insulin LISPRO 300 UNITS/3 ML VIAL SQ SCH ×4 (08:11→20:54)
[2020-02-21] MEDS: Famotidine 20 MG TABLET PO SCH ×3 (08:13→20:54)
[2020-02-21] MEDS: Aspirin Enteric Coated 81 MG Tablet PO SCH ×2 (08:13→09:45)
[2020-02-21] MEDS: CycloSPORINE, Mod (Neoral) 25 MG CAPSULE PO SCH ×3 (08:13→20:54)
[2020-02-21] MEDS: Mycophenolate Sodium (DR) 180 MG TABLET.DR PO SCH ×3 (08:13→20:54)
[2020-02-21] MEDS: polyethylene glycoL 3350 17 GM POWD.PACK PO SCH ×2 (08:14→09:45)
[2020-02-21] MEDS: Piperacillin/Tazobactam 3.375 GM in 0.9 % Sodium Chloride Mini Bag 100 ML IVPB SCH ×3 (08:14→23:10)
[2020-02-21] MEDS: SODIUM ZIRCONIUM CYCLOSILICATE 5 GM POWD.PACK PO SCH ×2 (08:14→09:44)
[2020-02-21] MEDS: Dorzolamide/Timolol OPTH 10 ML BOTTLE BOTH EYES SCH ×2 (08:15→20:54)
[2020-02-21] MEDS: Sodium Bicarbonate 75 MEQ in D5% in 0.45% NACL 1,000 ML IVC SCH (10:48)
[2020-02-21 10:54] LABS: ABG Base Excess 2 mEq/L (-2 to 3); ABG HCO3 26 mEq/L (21-27); ABG Oxygen Saturation 96 % (95-98); ABG PCO2 40 mmHg (35-45); ABG PH 7.43 pH Units (7.32-7.45); ABG PO2 79 mmHg (85-104); ABG TCO2 27 mEq/L (20-26)
[2020-02-21] MEDS ORDERED: Furosemide 20 MG/2 ML VIAL IVP ONE (12:48)
[2020-02-21] MEDS: Haloperidol Lactate 5 MG/ML VIAL IVP PRN (16:13)
[2020-02-22 03:46] LABS: Basophils % 0.6 %; Eosinophils # 0.2 K/mcL (0.0-0.6); Eosinophils % 2.3 %; Hematocrit 26.6 % (37.5-50.1); Hemoglobin 7.8 g/dL (12.9-16.9); Immature Granulocytes % 2.3 % (0-4); Lymphocytes # 2.5 K/mcL (0.6-4.6); Lymphocytes % 38.7 %; Mean Corpuscular HGB Conc 29.3 g/dL (31.6-35.5); Mean Corpuscular Hemoglobin 25.5 pg (28.0-33.3); Mean Corpuscular Volume 86.9 fL (83.0-100.0); Mean Platelet Volume 11.1 fL (9.4-12.4); Monocytes # 0.6 K/mcL (0.0-1.3); Platelet Count 141 K/mcL (140-400); Red Blood Count 3.06 M/mcL (4.19-5.50); Segmented Neutrophils % 46.1 %; White Blood Count 6.4 K/mcL (4.3-11.1)
[2020-02-22 04:06] LABS: Calcium 10.7 mg/dL (8.6-10.3); Potassium 4.6 mEq/L (3.5-5.1)
[2020-02-22] MEDS ORDERED: Isovue-300 200 mL Infus..BTL ONE ×2 (06:58→06:59)
[2020-02-22] MEDS ORDERED: 0.9 % Sodium Chloride 1,000 ML ONE ×2 (06:58→06:59)
[2020-02-22] MEDS ORDERED: *HR* Heparin 10,000 UNIT/10 ML VIAL ONE (06:58)
[2020-02-22] MEDS: Mycophenolate Sodium (DR) 180 MG TABLET.DR PO SCH ×2 (07:30→20:47)
[2020-02-22] MEDS: CycloSPORINE, Mod (Neoral) 25 MG CAPSULE PO SCH ×2 (07:30→20:47)
[2020-02-22] MEDS: SODIUM ZIRCONIUM CYCLOSILICATE 5 GM POWD.PACK PO SCH (07:30)
[2020-02-22] MEDS: Dorzolamide/Timolol OPTH 10 ML BOTTLE BOTH EYES SCH ×2 (07:30→20:57)
[2020-02-22] MEDS: Insulin LISPRO 300 UNITS/3 ML VIAL SQ SCH ×4 (07:48→22:30)
[2020-02-22] MEDS ORDERED: *HR* Metoprolol 5 MG/5 ML VIAL IVP ONE (08:59)
[2020-02-22] MEDS ORDERED: Acetaminophen 325 MG TABLET PO PRN (09:13)
[2020-02-22] MEDS: Piperacillin/Tazobactam 3.375 GM in 0.9 % Sodium Chloride Mini Bag 100 ML IVPB SCH ×3 (09:50→23:34)
[2020-02-22] MEDS ORDERED: Furosemide 40 MG/4 ML VIAL IVP ONE (10:22)
[2020-02-22] MEDS: Aspirin Enteric Coated 81 MG Tablet PO SCH (10:32)
[2020-02-22] MEDS: polyethylene glycoL 3350 17 GM POWD.PACK PO SCH (10:33)
[2020-02-22] MEDS: Famotidine 20 MG TABLET PO SCH ×2 (10:33→20:54)
[2020-02-22 15:02] LABS: Folate 12.4 ng/mL (3.0-16.0)
[2020-02-22] MEDS ORDERED: QUEtiapine Fumarate 25 MG TABLET PO SCH (21:00)
[2020-02-22] MEDS: Haloperidol Lactate 5 MG/ML VIAL IVP PRN (22:27)
[2020-02-23 04:06] LABS: Segmented Neutrophils % 48.5 %
[2020-02-23 04:08] LABS: Basophils % 0.6 %; Eosinophils # 0.2 K/mcL (0.0-0.6); Eosinophils % 2.8 %; Hematocrit 25.7 % (37.5-50.1); Hemoglobin 7.5 g/dL (12.9-16.9); Immature Granulocytes % 0.9 % (0-4); Lymphocytes % 35.6 %; Mean Corpuscular HGB Conc 29.2 g/dL (31.6-35.5); Mean Corpuscular Hemoglobin 25.7 pg (28.0-33.3); Mean Platelet Volume 10.6 fL (9.4-12.4); Monocytes # 0.6 K/mcL (0.0-1.3); Monocytes % 11.6 %; Neutrophils # 2.7 K/mcL (1.6-8.9); Nucleated Red Blood Cells 1.3 /100 WBC (0); Platelet Count 149 K/mcL (140-400); Red Blood Count 2.92 M/mcL (4.19-5.50); Red Cell Distribution Width 18.1 % (11.5-14.5); White Blood Count 5.5 K/mcL (4.3-11.1)
[2020-02-23 04:24] LABS: Calcium 10.5 mg/dL (8.6-10.3); Potassium 4.5 mEq/L (3.5-5.1)
[2020-02-23 04:57] LABS: Anisocytosis 1+ (Not Present); Platelet Estimate Normal (Normal); Poikilocytosis 1+ (Not Present); Polychromasia 2+ (Not Present)
[2020-02-23] MEDS ORDERED: Dexamethasone 4 MG/ML VIAL ONE (07:06)
[2020-02-23] MEDS ORDERED: Ondansetron 4 MG/2 ML VIAL ONE (07:06)
[2020-02-23] MEDS ORDERED: *HR* Propofol 200 MG/20 ML VIAL IVP ONE ×2 (07:06→07:38)
[2020-02-23] MEDS ORDERED: Lidocaine HCL 4 ML Topical Solution (Laryng-O-Jet Kit Sterile Pak) TP ONE (07:06)
[2020-02-23] MEDS ORDERED: *HR* FentaNYL (PF) 100 MCG/2 ML VIAL ONE (07:06)
[2020-02-23] MEDS ORDERED: Lidocaine -MPF 2% 2 ML VIAL ONE (07:06)
[2020-02-23] MEDS ORDERED: *HR* Succinylcholine 200 MG/10 ML VIAL IVP ONE (07:06)
[2020-02-23] MEDS ORDERED: Bupivacaine/EPI 1:200k 0.25%PF 10 ML VIAL INFILT ONE (07:17)
[2020-02-23] MEDS ORDERED: Vancomycin 1,000 MG VIAL ONE (07:18)
[2020-02-23] MEDS ORDERED: Lidocaine 1% 20 ML MDV ONE (07:18)
[2020-02-23] MEDS: Insulin LISPRO 300 UNITS/3 ML VIAL SQ SCH ×3 (07:38→16:42)
[2020-02-23] MEDS ORDERED: EPHEDrine 50 MG/ML VIAL ONE (08:02)
[2020-02-23] MEDS ORDERED: *HR* PHENYLEPHRINE 1,000 MCG/10 ML SYRINGE IVP ONE ×2 (08:06→08:34)
[2020-02-23 08:07] LABS: Triiodothyronine (T3) Free 2.52 pg/mL (2.50-3.90)
[2020-02-23] MEDS ORDERED: Pregabalin 75 MG CAPSULE PO ONE ×2 (08:29→14:50)
[2020-02-23] MEDS ORDERED: *HR* Labetalol 20 MG/4 ML SYRINGE IVP PRN ×2 (08:29→14:50)
[2020-02-23] MEDS ORDERED: *HR* HYDROmorphone 2 MG TABLET PO PRN ×2 (08:29→14:50)
[2020-02-23] MEDS ORDERED: *HR* HYDROmorphone (PF) 1 MG/ML SYRINGE IVP PRN ×2 (08:29→14:50)
[2020-02-23] MEDS ORDERED: *HR* Promethazine 25 MG/ML VIAL IVP PRN ×2 (08:29→14:50)
[2020-02-23] MEDS ORDERED: *HR* Phenylephrine 10 MG/ML VIAL ONE (08:35)
[2020-02-23] MEDS ORDERED: Furosemide 40 MG/4 ML VIAL IVP SCH (09:00)
[2020-02-23 09:51] LABS: Basophils # 0.1 K/mcL (0.0-0.2); Basophils % 0.6 %; Eosinophils # 0.3 K/mcL (0.0-0.6); Hematocrit 26.3 % (37.5-50.1); Hemoglobin 7.7 g/dL (12.9-16.9); Immature Granulocytes % 1.2 % (0-4); Lymphocytes # 3.7 K/mcL (0.6-4.6); Lymphocytes % 44.2 %; Mean Corpuscular HGB Conc 29.3 g/dL (31.6-35.5); Mean Corpuscular Hemoglobin 25.9 pg (28.0-33.3); Mean Corpuscular Volume 88.6 fL (83.0-100.0); Mean Platelet Volume 10.6 fL (9.4-12.4); Monocytes # 0.8 K/mcL (0.0-1.3); Monocytes % 9.6 %; Neutrophils # 3.4 K/mcL (1.6-8.9); Nucleated Red Blood Cells 1.1 /100 WBC (0); Platelet Count 171 K/mcL (140-400); Red Blood Count 2.97 M/mcL (4.19-5.50); Red Cell Distribution Width 18.8 % (11.5-14.5); Segmented Neutrophils % 41.4 %
[2020-02-23 09:54] LABS: White Blood Count 8.3 K/mcL (4.3-11.1)
[2020-02-23] MEDS: Piperacillin/Tazobactam 3.375 GM in 0.9 % Sodium Chloride Mini Bag 100 ML IVPB SCH ×2 (11:34→20:45)
[2020-02-23] MEDS: Aspirin Enteric Coated 81 MG Tablet PO SCH (11:35)
[2020-02-23] MEDS: CycloSPORINE, Mod (Neoral) 25 MG CAPSULE PO SCH ×2 (11:35→20:42)
[2020-02-23] MEDS: Mycophenolate Sodium (DR) 180 MG TABLET.DR PO SCH ×2 (11:36→20:43)
[2020-02-23] MEDS: SODIUM ZIRCONIUM CYCLOSILICATE 5 GM POWD.PACK PO SCH (11:36)
[2020-02-23] MEDS: Dorzolamide/Timolol OPTH 10 ML BOTTLE BOTH EYES SCH ×2 (11:36→20:44)
[2020-02-23] MEDS: Famotidine 20 MG TABLET PO SCH ×2 (11:36→16:47)
[2020-02-23] MEDS: polyethylene glycoL 3350 17 GM POWD.PACK PO SCH (11:36)
[2020-02-23] MEDS ORDERED: Naloxone 0.4 MG/ML INJ IVP PRN (14:50)
[2020-02-23] MEDS ORDERED: Acetaminophen 325 MG TABLET PO PRN (14:50)
[2020-02-23] MEDS ORDERED: *HR* Dextrose 50 % in Water (Syg) 50 ML SYRINGE IVP PRN (14:50)
[2020-02-23] MEDS ORDERED: Haloperidol Lactate 5 MG/ML VIAL IVP PRN (14:50)
[2020-02-23] MEDS ORDERED: Dextrose Gel 15 GM/37.5 ML TUBE PO PRN ×2 (14:50)
[2020-02-23] MEDS ORDERED: D5% in Water 1,000 ML IVC PRN (14:50)
[2020-02-23] MEDS ORDERED: Ondansetron 4 MG/2 ML VIAL IVP PRN (14:50)
[2020-02-23] MEDS ORDERED: Bisacodyl 10 MG RECTAL SUPPOSITORY RC PRN (14:50)
[2020-02-23] MEDS: QUEtiapine Fumarate 25 MG TABLET PO SCH (20:43)
[2020-02-23] MEDS ORDERED: Insulin LISPRO 300 UNITS/3 ML VIAL SQ SCH (21:00)
[2020-02-24] MEDS: Piperacillin/Tazobactam 3.375 GM in 0.9 % Sodium Chloride Mini Bag 100 ML IVPB SCH ×3 (03:02→18:11)
[2020-02-24 06:09] LABS: Basophils % 0.3 %; Eosinophils # 0.1 K/mcL (0.0-0.6); Eosinophils % 0.7 %; Hematocrit 24.2 % (37.5-50.1); Hemoglobin 7.1 g/dL (12.9-16.9); Immature Granulocytes % 0.4 % (0-4); Lymphocytes # 1.8 K/mcL (0.6-4.6); Lymphocytes % 25.5 %; Mean Corpuscular HGB Conc 29.3 g/dL (31.6-35.5); Mean Corpuscular Hemoglobin 26.2 pg (28.0-33.3); Mean Corpuscular Volume 89.3 fL (83.0-100.0); Mean Platelet Volume 10.9 fL (9.4-12.4); Monocytes # 0.8 K/mcL (0.0-1.3); Monocytes % 10.6 %; Neutrophils # 4.4 K/mcL (1.6-8.9); Nucleated Red Blood Cells 0.3 /100 WBC (0); Platelet Count 159 K/mcL (140-400); Red Blood Count 2.71 M/mcL (4.19-5.50); Red Cell Distribution Width 19.1 % (11.5-14.5); Segmented Neutrophils % 62.5 %; White Blood Count 7.1 K/mcL (4.3-11.1)
[2020-02-24 06:14] LABS: Calcium 10.3 mg/dL (8.6-10.3); Potassium 4.6 mEq/L (3.5-5.1)
[2020-02-24] MEDS: Insulin LISPRO 300 UNITS/3 ML VIAL SQ SCH ×4 (08:48→20:33)
[2020-02-24] MEDS: CycloSPORINE, Mod (Neoral) 25 MG CAPSULE PO SCH ×2 (09:00→20:30)
[2020-02-24] MEDS: Aspirin Enteric Coated 81 MG Tablet PO SCH (09:01)
[2020-02-24] MEDS: Furosemide 40 MG/4 ML VIAL IVP SCH (09:02)
[2020-02-24] MEDS: Famotidine 20 MG TABLET PO SCH ×2 (09:02→16:05)
[2020-02-24] MEDS: Dorzolamide/Timolol OPTH 10 ML BOTTLE BOTH EYES SCH ×2 (09:03→20:31)
[2020-02-24] MEDS: SODIUM ZIRCONIUM CYCLOSILICATE 5 GM POWD.PACK PO SCH (09:04)
[2020-02-24] MEDS: polyethylene glycoL 3350 17 GM POWD.PACK PO SCH (09:04)
[2020-02-24] MEDS: Mycophenolate Sodium (DR) 180 MG TABLET.DR PO SCH ×2 (09:08→20:33)
[2020-02-24] MEDS: Fluticasone Propionate Nasal 50 MCG/SPRAY BOTTLE NS SCH (10:38)
[2020-02-24] MEDS: *HR* HYDROcodone/Acet 5/325 mg TABLET PO PRN ×2 (10:38→20:35)
[2020-02-24] MEDS ORDERED: Furosemide 20 MG/2 ML VIAL IVP SCH (18:00)
[2020-02-24] MEDS: QUEtiapine Fumarate 25 MG TABLET PO SCH (20:35)
[2020-02-25] MEDS: Piperacillin/Tazobactam 3.375 GM in 0.9 % Sodium Chloride Mini Bag 100 ML IVPB SCH ×3 (02:46→18:16)
[2020-02-25 05:34] LABS: Hemoglobin 6.8 g/dL (12.9-16.9)
[2020-02-25 05:35] LABS: Basophils % 0.6 %; Eosinophils # 0.2 K/mcL (0.0-0.6); Eosinophils % 4.5 %; Hematocrit 23.8 % (37.5-50.1); Immature Granulocytes % 0.6 % (0-4); Lymphocytes # 1.8 K/mcL (0.6-4.6); Lymphocytes % 33.7 %; Mean Corpuscular HGB Conc 28.6 g/dL (31.6-35.5); Mean Corpuscular Hemoglobin 25.9 pg (28.0-33.3); Mean Corpuscular Volume 90.5 fL (83.0-100.0); Mean Platelet Volume 9.7 fL (9.4-12.4); Monocytes # 0.7 K/mcL (0.0-1.3); Monocytes % 12.3 %; Neutrophils # 2.6 K/mcL (1.6-8.9); Nucleated Red Blood Cells 0.6 /100 WBC (0); Platelet Count 151 K/mcL (140-400); Red Blood Count 2.63 M/mcL (4.19-5.50); Red Cell Distribution Width 19.8 % (11.5-14.5); Segmented Neutrophils % 48.3 %; White Blood Count 5.4 K/mcL (4.3-11.1)
[2020-02-25 05:49] LABS: Bilirubin,Total 0.8 mg/dL (0.3-1.0); Calcium 10.1 mg/dL (8.6-10.3); Globulin 2.9 g/dL (2.4-3.5); Potassium 3.7 mEq/L (3.5-5.1); Total Protein 5.9 g/dL (6.4-8.9)
[2020-02-25 05:56] LABS: Anisocytosis 1+ (Not Present); Hypochromasia Present (Not Present)
[2020-02-25 05:57] LABS: Platelet Estimate Normal (Normal)
[2020-02-25] MEDS ORDERED: 0.9 % Sodium Chloride 250 ML ONE ×2 (06:30→11:08)
[2020-02-25] MEDS: Insulin LISPRO 300 UNITS/3 ML VIAL SQ SCH ×4 (07:39→20:59)
[2020-02-25] MEDS: Aspirin Enteric Coated 81 MG Tablet PO SCH (07:45)
[2020-02-25] MEDS: CycloSPORINE, Mod (Neoral) 25 MG CAPSULE PO SCH ×2 (07:45→20:58)
[2020-02-25] MEDS: Mycophenolate Sodium (DR) 180 MG TABLET.DR PO SCH ×2 (07:45→20:57)
[2020-02-25] MEDS: polyethylene glycoL 3350 17 GM POWD.PACK PO SCH (07:46)
[2020-02-25] MEDS: SODIUM ZIRCONIUM CYCLOSILICATE 5 GM POWD.PACK PO SCH (07:46)
[2020-02-25] MEDS: Dorzolamide/Timolol OPTH 10 ML BOTTLE BOTH EYES SCH ×2 (07:47→20:56)
[2020-02-25] MEDS: Fluticasone Propionate Nasal 50 MCG/SPRAY BOTTLE NS SCH (07:47)
[2020-02-25] MEDS: Famotidine 20 MG TABLET PO SCH ×2 (08:00→15:55)
[2020-02-25] MEDS: Furosemide 40 MG/4 ML VIAL IVP SCH (10:16)
[2020-02-25 16:27] LABS: Hematocrit 28.2 % (37.5-50.1); Hemoglobin 8.3 g/dL (12.9-16.9)
[2020-02-25] MEDS: QUEtiapine Fumarate 25 MG TABLET PO SCH (20:57)
[2020-02-25] MEDS: *HR* HYDROcodone/Acet 5/325 mg TABLET PO PRN (20:58)
[2020-02-26] MEDS: Piperacillin/Tazobactam 3.375 GM in 0.9 % Sodium Chloride Mini Bag 100 ML IVPB SCH ×3 (03:19→19:10)
[2020-02-26 06:34] LABS: Basophils % 0.7 %; Eosinophils # 0.3 K/mcL (0.0-0.6); Eosinophils % 4.1 %; Hematocrit 28.4 % (37.5-50.1); Hemoglobin 8.4 g/dL (12.9-16.9); Immature Granulocytes % 0.5 % (0-4); Lymphocytes % 32.6 %; Mean Corpuscular HGB Conc 29.6 g/dL (31.6-35.5); Mean Corpuscular Hemoglobin 26.9 pg (28.0-33.3); Mean Platelet Volume 10.4 fL (9.4-12.4); Monocytes # 0.7 K/mcL (0.0-1.3); Monocytes % 10.9 %; Neutrophils # 3.1 K/mcL (1.6-8.9); Nucleated Red Blood Cells 0.3 /100 WBC (0); Platelet Count 152 K/mcL (140-400); Red Blood Count 3.12 M/mcL (4.19-5.50); Red Cell Distribution Width 19.4 % (11.5-14.5); Segmented Neutrophils % 51.2 %; White Blood Count 6.1 K/mcL (4.3-11.1)
[2020-02-26 06:54] LABS: Calcium 10.2 mg/dL (8.6-10.3); Potassium 3.5 mEq/L (3.5-5.1)
[2020-02-26] MEDS: Insulin LISPRO 300 UNITS/3 ML VIAL SQ SCH ×4 (07:46→21:16)
[2020-02-26] MEDS: Mycophenolate Sodium (DR) 180 MG TABLET.DR PO SCH ×2 (07:47→21:09)
[2020-02-26] MEDS: Aspirin Enteric Coated 81 MG Tablet PO SCH (07:48)
[2020-02-26] MEDS: Famotidine 20 MG TABLET PO SCH ×2 (07:48→16:12)
[2020-02-26] MEDS: CycloSPORINE, Mod (Neoral) 25 MG CAPSULE PO SCH ×2 (07:48→21:08)
[2020-02-26] MEDS: Furosemide 40 MG/4 ML VIAL IVP SCH (07:48)
[2020-02-26] MEDS: SODIUM ZIRCONIUM CYCLOSILICATE 5 GM POWD.PACK PO SCH (07:49)
[2020-02-26] MEDS: polyethylene glycoL 3350 17 GM POWD.PACK PO SCH (07:49)
[2020-02-26] MEDS: Fluticasone Propionate Nasal 50 MCG/SPRAY BOTTLE NS SCH (07:50)
[2020-02-26] MEDS: Dorzolamide/Timolol OPTH 10 ML BOTTLE BOTH EYES SCH ×2 (07:50→21:08)
[2020-02-26] MEDS: QUEtiapine Fumarate 25 MG TABLET PO SCH (21:09)
[2020-02-27 04:12] LABS: Basophils % 0.7 %; Eosinophils # 0.3 K/mcL (0.0-0.6); Eosinophils % 4.9 %; Hematocrit 28.6 % (37.5-50.1); Hemoglobin 8.6 g/dL (12.9-16.9); Immature Granulocytes % 0.5 % (0-4); Lymphocytes # 1.9 K/mcL (0.6-4.6); Lymphocytes % 32.5 %; Mean Corpuscular HGB Conc 30.1 g/dL (31.6-35.5); Mean Corpuscular Hemoglobin 27.3 pg (28.0-33.3); Mean Corpuscular Volume 90.8 fL (83.0-100.0); Mean Platelet Volume 10.5 fL (9.4-12.4); Monocytes # 0.6 K/mcL (0.0-1.3); Monocytes % 10.3 %; Neutrophils # 2.9 K/mcL (1.6-8.9); Platelet Count 173 K/mcL (140-400); Red Blood Count 3.15 M/mcL (4.19-5.50); Red Cell Distribution Width 19.9 % (11.5-14.5); Segmented Neutrophils % 51.1 %; White Blood Count 5.8 K/mcL (4.3-11.1)
[2020-02-27 04:24] LABS: Calcium 10.3 mg/dL (8.6-10.3); Potassium 3.4 mEq/L (3.5-5.1)
[2020-02-27] MEDS: Piperacillin/Tazobactam 3.375 GM in 0.9 % Sodium Chloride Mini Bag 100 ML IVPB SCH ×3 (05:20→17:45)
[2020-02-27] MEDS: CycloSPORINE, Mod (Neoral) 25 MG CAPSULE PO SCH (09:19)
[2020-02-27] MEDS: Mycophenolate Sodium (DR) 180 MG TABLET.DR PO SCH (09:19)
[2020-02-27] MEDS: Famotidine 20 MG TABLET PO SCH ×2 (09:20→17:45)
[2020-02-27] MEDS: Aspirin Enteric Coated 81 MG Tablet PO SCH (09:20)
[2020-02-27] MEDS: Furosemide 40 MG/4 ML VIAL IVP SCH (09:21)
[2020-02-27] MEDS: SODIUM ZIRCONIUM CYCLOSILICATE 5 GM POWD.PACK PO SCH (09:21)
[2020-02-27] MEDS: Insulin LISPRO 300 UNITS/3 ML VIAL SQ SCH ×3 (09:22→17:46)
[2020-02-27] MEDS: polyethylene glycoL 3350 17 GM POWD.PACK PO SCH (09:22)
[2020-02-27] MEDS: Dorzolamide/Timolol OPTH 10 ML BOTTLE BOTH EYES SCH (09:23)
[2020-02-27] MEDS: Fluticasone Propionate Nasal 50 MCG/SPRAY BOTTLE NS SCH (09:24)
[2020-02-27 20:14] VITALS: BP 121/50
[2020-02-27] MEDS: *HR* HYDROcodone/Acet 5/325 mg TABLET PO PRN (20:48)
[2020-02-28] MEDS ORDERED: SODIUM ZIRCONIUM CYCLOSILICATE 5 GM POWD.PACK PO SCH (09:00)
== END 2020-02-27 20:45 | DRG 853 ==
LOC: 2ANU 19:30 → EMEROOARM 19:30 → OBSVTOIN 22:12 → SUATTDRO 22:12 → 2ANU 02-12 00:05
PROVIDERS: ADMIT Internal Medicine; ATTEND Family Medicine